=== PATIENT | female | born 1995 | race Caucasian/White ===

== ENCOUNTER 2016-07-31 14:46 | Inpatient (IN) | payer BC, OTHER ==
[2016-07-31] MEDS ORDERED: Norco 10/325 MG Tablet PO ONE (15:31)
[2016-07-31 15:36] LABS: Collection Type VOID
[2016-07-31 15:37] LABS: COMPLETE URINE MICROSCOPIC? YES
[2016-07-31 15:43] LABS: Mucus SLIGHT /HPF (NEGATIVE)
[2016-07-31 15:44] LABS: Bacteria MODERATE /HPF (NEGATIVE); Epithelial Cells MANY /HPF (FEW)
[2016-07-31] MEDS ORDERED: Ephedrine Sulfate 50 MG/ML IV PRN (16:58)
[2016-07-31] MEDS ORDERED: OB EPIDURAL NAROPIN/SUFENTANIL IN NACL EPIDURAL PRN (16:58)
[2016-07-31] MEDS: Lactated Ringers 1,000 ML IV ONE ×2 (18:15→19:25)
[2016-07-31] MEDS: Lactated Ringers 1,000 ML IV SCH ×3 (18:38→19:45)
[2016-07-31] MEDS ORDERED: Zofran 4 MG/2 ML VIAL IV PRN (19:12)
[2016-07-31] MEDS ORDERED: XYLOCAINE 1% HCL 20 ML MDV IJ PRN (19:12)
[2016-07-31 19:28] LABS: BASOPHIL % 0.2 % (0.0-0.4); Eosinophil % 0.6 % (0.00-5.0); Lymphocytes % 22.4 % (24.0-44.0); Mean Cell Volume 81.5 fl (78-100); Mean Platelet Volume 10.3 fl (6-9.5); Monocytes % 6.8 % (0.0-12.0); Platelet Count 170 K/mm3 (150-450); Red Blood Count 3.36 M/mm3 (4.1-5.4); Red Cell Distribution Width 13.9 % (11.5-14.0); White Blood Count 8.5 K/mm3 (4.0-10.5)
[2016-07-31 19:29] LABS: Mean Corpuscular Hemoglobin 26.1 pg (26-32)
[2016-07-31] MEDS ORDERED: PITOCIN 30 UNITS/ LR 500 ML 500 ML IV SCH (19:30)
[2016-07-31] MEDS ORDERED: PITOCIN 30 UNITS/ LR 500 ML 500 ML IV ONE (19:48)
[2016-07-31] MEDS ORDERED: Reglan 10 MG/2 ML ONE (19:54)
[2016-07-31] MEDS ORDERED: Pepcid 20 MG VIAL IV ONE (19:54)
[2016-07-31] MEDS ORDERED: BICITRA 30 ML CUP ONE (19:54)
[2016-07-31] MEDS ORDERED: Sodium Chloride 0.9% 1000 ML 1,000 ML ONE (20:18)
[2016-07-31] MEDS ORDERED: Lactated Ringers 2,000 ML IV ONE (20:19)
[2016-07-31] MEDS ORDERED: KEFZOL 1 GM ONE (20:26)
[2016-07-31] MEDS ORDERED: Phenergan 25 MG INJ IM PRN (21:08)
[2016-07-31] MEDS ORDERED: Pitocin 10 UNITS/ML IV ONE (21:09)
[2016-07-31] MEDS ORDERED: XYLOCAINE 2%/Epi 1:200000 20ML VIAL MPF IJ ONE (21:09)
[2016-07-31] MEDS ORDERED: Ephedrine Sulfate 50 MG/ML IV ONE (21:09)
[2016-07-31] MEDS ORDERED: Zofran 4 MG/2 ML VIAL IV ONE (21:09)
[2016-07-31] MEDS ORDERED: CORTISONE 1% CREAM TP PRN (21:10)
[2016-07-31] MEDS ORDERED: MOTRIN 400 MG PO PRN (21:10)
[2016-07-31] MEDS ORDERED: Dulcolax 10 MG SUPP PR PRN (21:10)
[2016-07-31] MEDS ORDERED: M-M-R II Vaccine With Diluent SQ ONE (21:10)
[2016-07-31] MEDS ORDERED: LANSINOH 40 GM TOP PRN (21:10)
[2016-07-31] MEDS ORDERED: DEMEROL 50 MG ONE (21:11)
[2016-07-31] MEDS ORDERED: HOLD NARCOTIC ANALGESICS AND SEDATIVES X24 HR MC PRN (21:12)
[2016-07-31] MEDS ORDERED: MORPHINE SULFATE 2 MG INJ IV PRN (21:12)
[2016-07-31] MEDS ORDERED: DEMEROL 50 MG IV PRN (21:12)
[2016-07-31] MEDS ORDERED: BENADRYL 50 MG/ML IV PRN (21:12)
[2016-07-31] MEDS ORDERED: Narcan 0.4 MG/ML IV PRN (21:12)
[2016-07-31] MEDS ORDERED: Nubain 10 MG/ML IV PRN (21:12)
[2016-07-31] MEDS ORDERED: CLARITIN 10 MG PO PRN (21:12)
[2016-07-31] MEDS ORDERED: Reglan 10 MG/2 ML IV SCH (21:15)
[2016-07-31] MEDS ORDERED: Pepcid 20 MG VIAL IV SCH (21:15)
[2016-07-31] MEDS ORDERED: BICITRA 30 ML CUP PO SCH (21:15)
[2016-07-31 21:16] LABS: INR 1.05 (0.8-3.0); PROTIME 11.7 SECONDS (9.95-12.35)
[2016-07-31 21:18] LABS: PTT 23.8 SECONDS (25.3-37.0)
[2016-07-31] MEDS: Colace 100 MG PO SCH (22:00)
[2016-07-31 22:15] LABS: Collection Type CATH
[2016-07-31 22:16] LABS: COMPLETE URINE MICROSCOPIC? YES
[2016-07-31] MEDS: PERCOCET TABLET 5/325MG PO PRN (23:11)
[2016-08-01] MEDS: Dextrose 5%-Lr IV Solution 1000 ML 1,000 ML IV SCH ×2 (00:37→08:22)
[2016-08-01] MEDS: PERCOCET TABLET 5/325MG PO PRN ×5 (03:34→20:41)
[2016-08-01 06:50] VITALS: O2SAT 100
[2016-08-01] MEDS: Colace 100 MG PO SCH ×2 (08:22→20:41)
[2016-08-01] MEDS: FERREX 150 PO SCH (08:22)
[2016-08-01 14:12] LABS: BASOPHIL % 0.1 % (0.0-0.4); Eosinophil % 1.6 % (0.00-5.0); Granulocytes % 73.9 % (36.0-66.0); Lymphocytes % 17.4 % (24.0-44.0); Mean Cell Volume 82.1 fl (78-100); Mean Platelet Volume 10.5 fl (6-9.5); Platelet Count 143 K/mm3 (150-450); Red Cell Distribution Width 14.3 % (11.5-14.0)
--- NOTE | 2016-08-01 16:04 | OP ---
SURGERY DATE/TIME: 07/31/2016 PREOPERATIVE DIAGNOSES: 1) Placental abruption. 2) Non-reassuring heart tones. 3) Desires permanent sterilization. POSTOPERATIVE DIAGNOSES: 1) Placental abruption. 2) Non-reassuring heart tones. 3) Desires permanent sterilization. PROCEDURE: Emergency primary low transverse section plus bilateral tubal ligation. SURGEON: Nic Odom M.D. ANESTHESIA: Spinal epidural by Bryant Farooq CRNA. ESTIMATED BLOOD LOSS: 500 cc. IV FLUIDS: 1,400 ml of crystalloid. URINE OUTPUT: 100 cc clear straw-colored urine. SPECIMEN: Bilateral fallopian tube segment and placenta was sent for pathology. DESCRIPTION OF PROCEDURE: This patient is a 21 year-old 2, para 1, at 38 and 3/7 weeks estimated gestational age who has had her care with Dr. Branham. She initially presented to the hospital complaining of intermittent back pain with cervical dilatation of 4 to 5 cm and contractions every two to three minutes. She had an epidural placed and was thought to be in labor at that point. Shortly after having her epidural placed Dr. Branham performed artificial rupture of membranes with significant bleeding and then decelerations of heart tones. I was called and consulted for emergency section and we took the patient directly to the OR. I did discuss risks, benefits and alternatives of section just outside the OR with her including the risk of bleeding, infection, damage to surrounding structures. I also discussed the permanent nature of tubal ligation. The patient voiced understanding and understood there were other options available to prevent but wanted to proceed with bilateral tubal ligation and understood the permanent nature of this with the accepted failure rate of 1:300. The patient was taken to the operating room and a previously placed epidural was dosed. She was prepped and draped quickly in the usual sterile fashion. A low transverse skin incision was made by knife and carried down to the level of the fascia. The fascia was nicked on both sides of the midline and extended horizontally. Peritoneal cavity was opened bluntly and bladder flap was created and reflected over the lower uterine segment after a bladder blade was inserted. Horizontal uterine incision was made by knife and carried down to the level of the amniotic membranes which were artificially ruptured. A viable female infant was delivered from the vertex presentation with significant clot present at the time of delivery of the infant. She had a strong cry. Oropharynx and nares were bulb suctioned free and cord was clamped and cut. Dr. Branham scrubbed to attend to the baby. The placenta was removed from the peritoneal cavity then the uterus was exteriorized. Uterine cavity was wiped free of blood and clot with lap sponge and then the uterine incision was closed with #1 chromic in a running locked fashion. Good closure and good hemostasis were achieved. Next, the left fallopian tube was identified and carried down to the fimbrial end. It was grasped with Ringling and a window was made in mesosalpinx. Chromic tie was used to ligate the proximal and distal tube segments and then the interceding tube segment was dissected free with Metzenbaum scissors. Free edges of the tubes were then cauterized with electrocautery. The same was repeated on the right. Good hemostasis achieved on both sides with adequate removal of tube segment. The posterior cul-de-sac was wiped free of blood and clot and then the uterus was returned to the peritoneal cavity. Lateral gutters were wiped free of blood and clot with a moist lap sponge and there was a small area of oozing along the middle of the incision which was controlled with 2-0 Vicryl in figure-of-8 fashion. The remainder of the incision was hemostatic with good closure. Next, the fascia was closed with 0 Vicryl in running fashion. Good hemostasis with good closure were achieved. Subcutaneous fat was irrigated with warm sterile saline. Any areas of oozing were cauterized with electrocautery. Finally the skin layer was closed with 4-0 undyed Vicryl in a running subcuticular fashion. Steri-Strips and occlusive dressing were placed over the incision and the patient was transferred to the recovery room in excellent condition. Of note, her hemoglobin was 8.8 prior to the bleeding episode in OB and she did have two episodes of hypotension prior to beginning the procedure. Due to this compounded with blood loss from surgery, 2 units of blood have been ordered and will be transfused in recovery and the patient will be followed closely.
[2016-08-01] MEDS: MOTRIN 400 MG PO PRN ×2 (16:35→22:06)
[2016-08-01] MEDS ORDERED: DEMEROL 75 MG IM PRN (21:08)
[2016-08-01] MEDS ORDERED: TYLENOL EXTRA STRENGTH 500 MG PO PRN (21:10)
[2016-08-01] MEDS ORDERED: Restoril 15 MG PO PRN (21:10)
[2016-08-01] MEDS: Mylicon 80MG PO PRN (23:13)
[2016-08-02] MEDS: Tylenol #3 Tablet PO PRN ×4 (01:11→20:00)
--- NOTE | 2016-08-02 05:52 | PCM.DS ---
Discharge Summary Date of Admission: 07/31/16 19:38 Admitting Physician: BIJAL JESUS Consults: Consults on Case 07/31/16 21:03 Notify Anesthesia Provider ROUTINE Notify Physician OF ADMISSION 07/31/16 21:10 Notify Physician ROUTINE Primary Care Provider: BIJAL JESUS Allergies Allergies No Known Drug Allergies Allergy (Verified 02/28/14 13:33) Hospital Summary - Hospital Course Hospital Course: patient arrived in labor, after AROM and epidural placement developed heavy vaginal bleeding and nonreassuring fht's, clinically consistent with placental abruption. had emergency c/s with btl on 07/31, no complications. was given 2 units packed rbc's in recovery, initial hgb was 8.x doing well post-op, pain mild, mild lochia. bottle feeding and well bonded. - Vitals & Intake/Output Vital Signs: Vital Signs Temperature 97.8 F 08/02/16 02:00 Pulse Rate 68 08/02/16 02:00 Respiratory Rate 20 08/02/16 02:00 Blood Pressure 110/73 08/02/16 02:00 O2 Sat by Pulse Oximetry 100 08/01/16 11:00 Intake & Output: Intake & Output 07/30/16 07/31/16 08/01/16 08/02/16 11:59 11:59 11:59 11:59 Intake Total 5840 650 Output Total 2425 Balance 3415 650 Weight 59.421 kg - Lab Result Diagrams: 08/01/16 13:54 Lab Results-Last 24 Hrs: Lab Results-Last 24 Hours 08/01/16 Range/Units 13:54 WBC 10.0 (4.0-10.5) K/mm3 RBC 3.40 L (4.1-5.4) M/mm3 Hgb 9.2 L (12.0-16.0) gm/dl Hct 27.9 L (35-47) % MCV 82.1 (78-100) fl MCH 27.0 (26-32) pg MCHC 33.0 (32-36) g/dl RDW 14.3 H (11.5-14.0) % Plt Count 143 L (150-450) K/mm3 MPV 10.5 H (6-9.5) fl Gran % 73.9 H (36.0-66.0) % Lymphocytes % 17.4 L (24.0-44.0) % Monocytes % 7.0 (0.0-12.0) % Eosinophils % 1.6 (0.00-5.0) % Basophils % 0.1 (0.0-0.4) % Basophils # 0.01 (0-0.4) Micro Results-Entire Visit: Microbiology 07/31/16 19:40 Urine Culture - Preliminary Catherized NO GROWTH TO DATE Discharge Exam General Appearance: no apparent distress, alert Skin Exam: normal color, warm, dry Respiratory Exam: normal breath sounds, lungs clear, No respiratory distress Cardiovascular Exam: regular rate/rhythm, normal heart sounds Gastrointestinal/Abdomen Exam: soft, other (incision c/d/i), No tenderness, No mass Extremity Exam: normal inspection, normal range of motion, No low's sign, No inflammation, No pedal edema, No tenderness Final Diagnosis/Problem List - Final Discharge Diagnosis/Problem (1) delivery delivered Current Visit: Yes Status: Acute (2) Placental abruption Current Visit: Yes Status: Acute (3) Tubal ligation status Current Visit: Yes Status: Acute - Discharge Disposition: Home, Self-Care Condition: Stable Prescriptions: New Codeine Phosphate/APAP #3 [Tylenol #3 Tablet] 1 - 2 tab PO Q4H PRN PRN # 20 tablet PRN Reason: Severe Pain Continue Ferrous Sulfate [Iron Supplement] 1 tab PO DAILY Discontinued Vits W-Ca,Fe,FA(<1Mg) [] 1 tab PO DAILY Follow up with: BIJAL JESUS [Primary Care Provider] - 1 Week
[2016-08-02] MEDS: Colace 100 MG PO SCH (09:04)
[2016-08-02] MEDS: FERREX 150 PO SCH (09:04)
[2016-08-02] MEDS: MOTRIN 400 MG PO PRN (09:05)
[2016-08-02] MEDS: Mylicon 80MG PO PRN (12:08)
[2016-08-02 21:31] VITALS: BP 127/74; PULSE 75
== END 2016-08-02 21:10 | disposition home or self-care (01) | DRG 766 ==
LOC: OB 14:46 → OBSVTOIN 19:38
PROVIDERS: ADMIT Family Medicine; ATTEND Family Medicine
PROC: 10907ZC Drainage of Amniotic Fluid, Therapeutic from Products of Conception, Via Natural or Artificial Opening (ICD-10-PCS; principal; 2016-07-31)
PROC: 10D00Z1 Extraction of Products of Conception, Low, Open Approach (ICD-10-PCS; 2016-07-31)
PROC: 0UL70ZZ Occlusion of Bilateral Fallopian Tubes, Open Approach (ICD-10-PCS; 2016-07-31)
DX: O45.8X3 Other premature separation of placenta, third trimester (principal); O76 Abnormality in fetal heart rate and rhythm complicating labor and delivery; Z3A.38 38 weeks gestation of pregnancy; Z37.0 Single live birth; D64.9 Anemia, unspecified; Z30.2 Encounter for sterilization
CPT/HCPCS: 36415; 36430; 80307; 81000; 81002; 85014; 85018; 85025; 85610; 85730; 86850; 86900; 86901; 86922; 87086; 90707; 94799; 96372; G0378; J0690; J2175; J2405; J2590; J2795; P9016; A9270-GY